=== PATIENT | female | born 1980 | race Caucasian/White ===

== ENCOUNTER 2020-09-16 15:28 | Outpatient (CLI) | payer OTHER, SELFPAY ==
--- NOTE | ~2020-09-16 | MM_ITS ---
EXAMINATION: MM screening rimma BI w warren HISTORY: Screening mammogram TECHNIQUE: Craniocaudal and mediolateral oblique 3-D tomosynthesis images were obtained and synthetic 2-D images were generated. CAD analysis was submitted and interpreted. COMPARISON: No prior mammogram is available for comparison at this institution. BREAST PARENCHYMAL COMPOSITION: There are scattered areas of fibroglandular density. FINDINGS: Approximately 1.5 cm mass is noted in the upper mid left breast; diagnostic left mammogram and left breast ultrasound examination are recommended. There is otherwise no evidence of suspicious mass, calcification, or architectural distortion to sugg est malignancy in either breast. IMPRESSION: 1. 1.5 cm asymmetric mass in upper mid left breast 2. Diagnostic left mammogram is recommended, with ultrasound correlation. BI-RADS Category 0: Incomplete: Needs additional imaging evaluation. Reviewed, dictated and finalized at location A.
== END 2020-09-16 15:29 | disposition home or self-care (01) ==
LOC: ANHIMG 15:29
PROVIDERS: Visit Provider Nurse Practitioner
DX: Z12.31 Encounter for screening mammogram for malignant neoplasm of breast (principal); R92.8 Other abnormal and inconclusive findings on diagnostic imaging of breast
CPT/HCPCS: 77063; 77067

== ENCOUNTER 2020-10-10 13:39 | Outpatient (CLI) | payer OTHER, SELFPAY ==
--- NOTE | ~2020-10-10 | MMUS_ITS ---
EXAMINATION: MM diagnostic mammo unilat LT, US breast LT limited HISTORY: Left breast mass on baseline screening mammogram TECHNIQUE: Additional 3-D tomosynthesis images of the left breast were performed and synthetic 2-D im ages were generated. CAD analysis was submitted and interpreted. High resolution limited left breast ultrasound was performed. COMPARISON: 09/16/2020 FINDINGS: MAMMOGRAPHIC FINDINGS: There is a 1.7 cm irregular equal density mass with indistinct margins at the 12:00 location in the m iddle third of the breast 5.8 cm from the nipple. ULTRASOUND: There is a 1.6 x 0.9 cm oval hypoechoic mass with microlobulated and angular margins at the 12:00 loc ation 4 cm from the nipple. The mass demonstrates posterior acoustic shadowing and peripheral vascula rity. IMPRESSION: 1. Suspicious left breast mass. 2. Ultrasound-guided biopsy is recommended. BI-RADS category 4, suspicious findings. Reviewed, dictated and finalized at location A. [employer] IMPRESSION: 1. Suspicious left breast mass. 2. Ultrasound-guided biopsy is recommended. BI-RADS category 4, suspicious findings.
== END 2020-10-10 13:40 | disposition home or self-care (01) ==
LOC: ANHIMG 13:47
PROVIDERS: PCP Family Medicine; Visit Provider Obstetrics & Gynecology Gynecology
DX: R92.8 Other abnormal and inconclusive findings on diagnostic imaging of breast (principal)
CPT/HCPCS: 76642; 77065

== ENCOUNTER 2023-03-28 08:07 | Emergency (ER) | payer OTHER, SELFPAY ==
--- NOTE | 2023-03-28 08:10 | ED.URI ---
HPI - URI/Sore Throat General Chief Complaint: Upper Respiratory Infection Stated Complaint: cold symptoms Time Seen by Provider: 03/28/23 08:09 Source: patient Mode of arrival: ambulatory Limitations: no limitations History of Present Illness HPI Narrative: Ms. Jasso is a 42-year-old female patient presenting to the clinic today with complaints of runny nose, cough, headache, itchy/watery eyes, and nasal congestion x 1 week She reports no fever or chills. Coughing up and blowing up yellow/green nasal drainage. Denies sore throat. No known exposure to anyone with strep, covid, or influenza. MD elicited complaint: cough, rhinorrhea, nasal congestion, sinus pain and other Related Data Allergies Allergy/AdvReac Type Severity Reaction Status Date / Time No Known Allergies Allergy Verified 03/28/23 08:22 Review of Systems Review of Systems: Pertinent positives per HPI. Patient denies any fever, chills, rash, headache, visual changes, dizziness, cough, shortness of breath, chest pain, palpitations, nausea, vomiting, diarrhea, constipation, abdominal pain, or any urinary issues. PMFSH Past Medical History Medical History Family history of cardiovascular disease Wellness examination Social History Social History Years smoked: 10 Smoking status: Former smoker Tobacco type: cigarettes Second hand tobacco smoke exposure: No Smoking end date: 11/25/10 Alcohol intake: current Substance use: never Substance use type: does not use Living arrangements: with family Occupation/Education: occupation Gender identity (if verbalized by the patient): Female Sexual Orientation (if Verbalized by the Patient): Straight or Heterosexual Comments At the time of my signature, I reviewed and agree with the nursing past medical, surgical, social, and family history. There is no relevant family history pertinent to the patient complaint. Exam Narrative: General: Well-developed, well nourished, in no apparent distress Head: Normocephalic, atraumatic Eyes: Pupils equally round and reactive to light bilaterally, EOM intact, sclera and conjunctive clear, no discharge, lids normal Ears: TMs intact and congested, ear canals clear, no drainage, grossly hearing normal. Nose: Nares patent, clear nasal discharge, moderate inflammation, maxillary sinus tenderness. Mouth: Oral pharynx without lesions or masses, good dentition, MMM. PND Neck: Supple, trachea midline, no enlargement of anterior or posterior cervical nodes, no thyroid masses or goiter palpable. Cardio: Regular rate and rhythm, s1 and s2 normal, no murmur appreciated. Resp: Clear to auscultation bilaterally, no rhonchi, rales, wheezing or rubs Course Course Emergency Course: Portions of this record may have been created with voice recognition software. Level of Care: Express Care Visit Vital Signs Vital signs: Vital signs reviewed MDM - URI/Sore Throat MDM Narrative Medical decision making narrative: At the time of visit patient is resting comfortably on the exam table. Patient's symptoms have been going on x1 week. I suspect patient has URI. Prescription for prednisone and Tessalon Perle were prescribed for the congestion and cough. Recommend patient be re-evaluated in 3-5 days if symptoms persist she may need antibiotics for acute bacterial rhinosinusitis. Supportive measures were discussed with the patient she voiced understanding of discharge instructions and agrees to treatment plan. Differential Diagnosis Differential diagnosis: Likely upper respiratory infection, otitis media, sinusitis, viral infection, bronchitis, influenza, pharyngitis and other (COVID) Discharge Plan Discharge Clinical Impression: Acute upper respiratory infection Patient Disposition: Home, Self-Care Condition: Stable Instructions: A
[2023-03-28 08:22] VITALS: BP 111/97; PULSE 97; RESP 18; TEMP 36.4; O2SAT 99
[2023-03-28 08:35] VITALS: BP 111/97; PULSE 97; RESP 18; TEMP 36.4; O2SAT 99
== END 2023-03-28 08:30 | disposition home or self-care (01) ==
PROVIDERS: Emergency Provider Nurse Practitioner Family; PCP Family Medicine
DX: J06.9 Acute upper respiratory infection, unspecified (principal); Z87.891 Personal history of nicotine dependence
CPT/HCPCS: 99213; G0463

== ENCOUNTER 2025-02-11 12:43 | Outpatient (CLI) | payer OTHER, SELFPAY ==
--- NOTE | ~2025-02-11 | US_ITS ---
Pelvic ultrasound. Clinical History: Pelvic fullness Technique: Realtime transabdominal and transvaginal scanning of the pelvis was performed. Color flow Doppler and Doppler spectral analysis were performed. Findings: The uterus is anteverted, and measures 10.2 x 5.6 x 6.[address] within the endomet rial cavity.. The endometrial stripe is poorly delineated due to IUD and fibroids. Submucosal fibroi d measures 2.1 cm in diameter. Additional probable subtle mucosal fibroid measures 2.0 cm in diameter . The larger fibroid, which may partially submucosal measures 2.4 cm in diameter.. The right ovary measures 3.5 x 2.5 x 3.4 cm. Right ovarian cyst measures 2.9 cm in diameter. The left ovary is not visualized. No significant left ovarian or adnexal mass is seen. There is no evidence of free fluid in the cul de sac. Impression: Multiple uterine fibroids, probably at least partially submucosal in location. 2.9 cm right ovarian cyst. IUD in place. Reviewed, dictated and finalized at [facility]. Impression: Multiple uterine fibroids, probably at least partially submucosal in location. 2.9 cm right ovarian cyst. IUD in place.
== END 2025-02-11 12:44 | disposition home or self-care (01) ==
LOC: GOSHIMG 12:43
PROVIDERS: PCP Family Medicine; Visit Provider Obstetrics & Gynecology Gynecology
DX: R19.09 Other intra-abdominal and pelvic swelling, mass and lump (principal); D25.0 Submucous leiomyoma of uterus; N83.291 Other ovarian cyst, right side; Z97.5 Presence of (intrauterine) contraceptive device
CPT/HCPCS: 76830; 76856

== ENCOUNTER 2025-03-29 12:49 | Outpatient (CLI) | payer OTHER, SELFPAY ==
--- NOTE | ~2025-03-29 | US_ITS ---
US pelvic complete w TV Ordering provider: Shilpi Turner MD History: . rt ovarian cyst . Comparison: None. Technique: Transabdominal and endovaginal ultrasound of the pelvis (Doppler ultrasound interrogation techniques used as needed for this exam.) FINDINGS: CERVIX: Normal. UTERUS: Measures 12.8x 5.9x 6 cm in length which is within normal limits and is anteverted. No myome trial masses. Multiple fibroids are seen with the largest measures 3.2 x 3.2 x 2.7 cm. ENDOMETRIUM: Not demonstrated. CUL DE SAC: No free fluid. RIGHT OVARY: Normal in size measuring 3.2x 4.4x 6.2 Normal echotexture. Doppler vascular flow present . Cyst is seen measuring 4.4 x 4.4 x 3.6 cm. LEFT OVARY: Not seen. ADNEXA: Normal. No mass. IMPRESSION: Multiple fibroids. Right ovarian cyst. Otherwise, normal pelvic ultrasound. Reviewed, dictated and finalized at location A.
== END 2025-03-29 12:50 | disposition home or self-care (01) ==
PROVIDERS: PCP Nurse Practitioner; Visit Provider Obstetrics & Gynecology Gynecology
DX: D25.9 Leiomyoma of uterus, unspecified (principal); N83.201 Unspecified ovarian cyst, right side
CPT/HCPCS: 76830; 76856

== ENCOUNTER 2025-06-28 08:57 | Outpatient (CLI) | payer OTHER, SELFPAY ==
--- NOTE | ~2025-06-28 | US_ITS ---
EXAMINATION: US pelvic complete w TV INDICATION: Ovarian cyst Comparison:03/29/2025 TECHNIQUE: Multiple transabdominal and endovaginal sonographic images of the pelvis performed. FINDINGS: The uterus measures 12.1 x 7.1 x 6 cm. There are are uterine fibroids, largest discrete fib roid measures 3.2 x 3.1 x 3.4 cm. There are nabothian cysts. IUD present in the endometrium. The endo metrial complex measures 5 mm. The right ovary measures 1.7 x 1.2 x 1.5 cm and the left ovary is not visualized. Normal Doppler sign al in the right ovary. There is no free fluid in the pelvis. There are no abnormal masses seen on either side. IMPRESSION: 1. Enlarged fibroid uterus, largest discrete fibroid measuring 3.4 cm. Reviewed, dictated and finalized at location A.
== END 2025-06-28 08:58 | disposition home or self-care (01) ==
PROVIDERS: PCP Nurse Practitioner; Visit Provider Obstetrics & Gynecology Gynecology
DX: N83.201 Unspecified ovarian cyst, right side (principal); N85.2 Hypertrophy of uterus
CPT/HCPCS: 76830; 76856